=== PATIENT | female | born 1985 ===

== ENCOUNTER 2025-01-26 03:07 | Emergency (ER) | payer OTHER ==
[~2025-01-26] VITALS: Ht 149.8 cm; Wt 92.5 kg
[2025-01-26 03:54] LABS: BASO # 0.0 10*3/uL (0.0-0.1); BASO % 0.1 % (0.0-1.0); EOS # 0.1 10*3/uL (0.0-0.4); EOS % 0.9 % (1.0-4.0); MEAN CELL VOLUME 84.6 fl (81.0-99.0); MEAN CORPUSCULAR HGB 26.7 pg (27.0-31.0); MEAN PLATELET VOLUME 10.8 fl (9.6-12.3); MONO # 0.5 10*3/uL (0.1-1.0); MONO % 5.4 % (3.0-9.0); NEUT # 6.0 10*3/uL (2.3-7.9); NEUT % 70.8 % (47.0-73.0); NUCLEATED RED BLOOD CELL 0.0 % (0.0-0.0); NUCLEATED RED BLOOD CELL 0.0 10*3/uL (0.0-0.0); PLATELET COUNT AUTOMATED 181 10*3/uL (130-400); RED CELL DISTRI WIDTH 14.2 % (0-14.5)
[2025-01-26] MEDS ORDERED: ACETAMINOPHEN 325 MG TAB PO ONE (04:25)
[2025-01-26 04:26] LABS: BUN 8 mg/dl (9-23)
== END 2025-01-26 06:47 | disposition home or self-care (01) ==
LOC: ED 03:07
PROVIDERS: Internal Medicine
DX: R55 Syncope and collapse (principal); D64.9 Anemia, unspecified; I10 Essential (primary) hypertension